=== PATIENT | female | born 1950 | race Caucasian/White ===

== ENCOUNTER 2020-05-13 08:13 | Outpatient (CLI) | payer OTHER, SELFPAY ==
--- NOTE | ~2020-05-13 | MM_ITS ---
EXAMINATION: MM screening [facility] BI w katarzyna HISTORY: Screening mammogram, family history of breast cancer in her sister. TECHNIQUE: Craniocaudal and mediolateral oblique 3-D tomosynthesis images were obtained and synthetic 2-D images were generated. CAD analysis was submitted and interpreted. COMPARISON: 03/30/2019, 03/25/2018, 02/17/2017 BREAST PARENCHYMAL COMPOSITION: The breasts are almost entirely fatty. FINDINGS: Stable focal asymmetry is again noted in the upper outer quadrant of the left breast. There is no evidence of suspicious mass, calcification, or architectural distortion to suggest malignancy in either breast. There has been no suspicious interval change. IMPRESSION: 1. No mammographic evidence of malignancy. 2. Recommend routine screening mammography in one year. BI-RADS Category 2: Benign finding(s). Reviewed, dictated and finalized at location A.
--- NOTE | ~2020-05-13 | DEXA_ITS ---
Bone Density Report Name: Freida House Age: 69 Sex: Female Ethnicity: White Date of : 1950 Indication: osteopenia; Referring Provider: Patt Nascimento Study: Bone densitometry was performed. Exam Date: May 13, 2020 Accession number: [id number] Bone Density: Region BMD T-score Z-score Classification AP Spine (L1-L4) 0.832 -2.0 0.1 Osteopenia Femoral Neck (Left) 0.619 -2.1 -0.3 Osteopenia Total Hip (Left) 0.759 -1.5 0.0 Osteopenia Total Hip Bilateral Avg 0.767 -1.5 0.1 Osteopenia Femoral Neck (Right) 0.598 -2.3 -0.5 Osteopenia Total Hip (Right) 0.775 -1.4 0.1 Osteopenia World Health Organization criteria for BMD impression classify patients as: Normal (T-score at or above -1.0), Osteopenia (T-score between -1.0 and -2.5), or Osteoporosis (T-score at or below -2.5). 10-year Fracture Risk(1): Major Osteoporotic Fracture 13% Hip Fracture 2.8% Reported Risk Factors: [place] (), Neck BMD=0.598, BMI=26.2 (1) FRAX(R) Version 3.08. Fracture probability calculated for an untreated patient. Fracture probability may be lower if the patient has received treatment. Previous Exams: Region Exam Age BMD T-score BMD Change BMD Change Date g/cm2 vs Baseline vs Previous AP Spine(L1-L4) 05/13/2020 69 0.832 -2.0 -0.019(-2.2%) 0.015(1.8%) 04/20/2018 67 0.817 -2.1 -0.034(-4.0%)* -0.034(-4.0%)* 07/23/2015 65 0.851 -1.8 Total Hip(Left) 05/13/2020 69 0.759 -1.5 -0.049(-6.1%)* -0.052(-6.4%)* 04/20/2018 67 0.811 -1.1 0.003(0.4%) 0.003(0.4%) 07/23/2015 65 0.808 -1.1 Total Hip(Right) 05/13/2020 69 0.775 -1.4 -0.037(-4.6%)* -0.045(-5.5%)* 04/20/2018 67 0.819 -1.0 0.008(1.0%) 0.008(1.0%) 07/23/2015 65 0.812 -1.1 *Denotes significance at 95% confidence level, LSC for AP Spine = 0.022 g/cm2, LSC for Total Hip = 0.027 g/cm2 Clinical Information Provided by Patient: Has used the following medications: Vitamin D, Calcium Patient maximum height was 62 Menopause Age: 50 Drinks caffeinated beverages Onset of menses at age 16 Number of children 1 Impression: The patient has low bone mass, based on the Right Femoral Neck T-score. The patient has an estimated ten-year risk of hip fracture of 2.8% and an estimated ten-year risk of major fracture of 13%, based on the WHO FRAX algorithm. The BMD for the Total Hip(Left) decreased, changing by -6.4% since the last DXA exam. The BMD for the Total Hip(Rig
== END 2020-05-13 08:14 | disposition home or self-care (01) ==
LOC: ANHIMG 08:24
PROVIDERS: PCP Nurse Practitioner Family; Visit Provider Nurse Practitioner Family
DX: Z12.31 Encounter for screening mammogram for malignant neoplasm of breast (principal); Z78.0 Asymptomatic menopausal state; M85.89 Other specified disorders of bone density and structure, multiple sites
CPT/HCPCS: 77063; 77067; 77080

== ENCOUNTER → 2021-05-03 01:17 | Outpatient (CLI) | payer OTHER, SELFPAY ==
[2021-05-03 19:37] LABS: SARS-CoV-2 RNA PCR Negative
== END ==
PROVIDERS: PCP Nurse Practitioner Family; Visit Provider Internal Medicine Gastroenterology
DX: Z01.812 Encounter for preprocedural laboratory examination (principal); Z20.822 Contact with and (suspected) exposure to COVID-19
CPT/HCPCS: C9803; U0003; U0005

== ENCOUNTER 2021-05-07 00:10 | Day surgery (SDC) | payer OTHER, SELFPAY ==
[2021-04-29 13:04] VITALS: BMI 25.8
[2021-05-07 07:41] VITALS: BP 142/89; PULSE 73; RESP 18; TEMP 35.9; O2SAT 100
[2021-05-07] MEDS: LACTATED RINGERS 1,000 ML 150 ML IV CONT (07:56)
--- NOTE | 2021-05-07 08:14 | WPDANESEPPF ---
Anes - Initial Pre Proc Eval Procedure: Operation Date: 05/07/21 08:30 Proposed Procedures p Screening Colonoscopy - Pineda Lemus MD Date/Time: 05/07/21 08:14 Surgeon: Pineda Lemus MD Pre Op Diagnosis: neoplasm screening Patient Data Age: 70 Gender: F Height: 5 ft 2 in Weight: 60.5 kg Last Vital Signs Temp 96.7 F L 05/07/21 07:41 Pulse 73 05/07/21 07:41 Resp 18 05/07/21 07:41 BP 142/89 H 05/07/21 07:41 Pulse Ox 100 05/07/21 07:41 Allergies Allergy/AdvReac Type Severity Reaction Status Date / Time Penicillins Allergy Unknown Unknown Verified 05/07/21 07:40 was told as a child Home Medications Medication Instructions Recorded Confirmed Type aspirin 81 mg tablet,delayed 81 mg PO DAILY 11/02/19 04/29/21 History release calcium carbonate 600 mg (1,500 1 tablet PO DAILY 11/02/19 04/29/21 History mg)-vitamin D3 200 unit tablet cholecalciferol (vitamin D3) 125 5,000 unit PO DAILY 11/02/19 04/29/21 History mcg (5,000 unit) tablet coenzyme Q10 200 mg capsule 200 mg PO DAILY 11/02/19 04/29/21 History benazepril 20 mg tablet See Rx Instructions .ROUTE 12/05/20 04/29/21 Rx .COMPLEX #90 tablet amlodipine 5 mg PO DAILY 04/29/21 04/29/21 History lovastatin 40 mg tablet 20 mg PO DAILY tablet 05/05/21 05/07/21 History Patient hx anesthesia problems: none Family hx anesthesia problems: none PMFSH Past Medical History Medical History (Updated 09/10/20 @ 09:35 by Patt Nascimento NP) Murillo palsy Essential (primary) hypertension Hyperlipidemia Normal colonoscopy (~10/2010) Osteopenia Surgical History Surgical History (Updated 05/03/20 @ 10:54 by Patt Nascimento NP) No history of previous surgery Social History Social History (Updated 05/03/20 @ 11:11 by Patt Nascimento NP) Smoking status: Former smoker Alcohol intake: current Living arrangements: alone Additional living arrangements comments: Patient designates her sonPerry as her qxdldjas-kh-hyui to make medical decision for her; HCPOA form is in chart Spiritual care concerns: No Anes - Eval Final PreProcedure Day of Procedure 05/07/21 08:14 Patient weight: normal Heart: regular rate and rhythm Lungs: clear to auscultation Airway: Mallampati scale class II Neurological: alert and oriented Last oral intake: >/= 8 hours ASA classification: III Emergent: no Anesthetic plan: proceed Anesthesia type and monitoring: general GIVS and standard monitoring Informed Consent: The patient's anesthetic plan and its attendant risks and benefits were discussed with the patient/family/POA. Questions were solicited and answers provided to the satisfaction of the patient/family/POA.
--- NOTE | 2021-05-07 08:21 | PM.HPGS ---
History of Present Illness History of Present Illness Consent: Risks, benefits, and alternatives have been discussed and questions answered. Patient agrees to proceed with procedure. Chief complaint: neoplasm screening Narrative: Freida House is a 70 year old female here for screening colonoscopy, last one 10 years ago. Review of Systems Constitutional: Constitutional: Denies headache(s) and Denies weakness Eyes: Eyes: Denies blurry vision ENT: Reports Normal hearing present, Denies headache(s) and Denies neck pain Cardiovascular: Cardiovascular: Denies chest pain and Denies dyspnea Respiratory: Respiratory: Denies dyspnea Gastrointestinal: Gastrointestinal: Reports no additional gastrointestinal complaints Genitourinary: Genitourinary: Denies dysuria Musculoskeletal: Musculoskeletal: Denies neck pain Integumentary/Breasts: Skin/Breast: Denies dry skin Neurologic: Reports Normal hearing present, Denies headache(s) and Denies weakness Psychiatric: Psychiatric: Denies anxiety Endocrine: Endocrine: Denies change in body appearance Hematologic/Lymphatic: Hematologic/Lymphatic: Denies easy bleeding Allergic/Immunologic: Allergic/Immunologic: Denies urticaria PMFSH Past Medical History Medical History (Updated 05/07/21 @ 08:38 by Pineda Lemus MD) Murillo palsy Colon cancer screening Essential (primary) hypertension Hyperlipidemia Normal colonoscopy (~10/2010) Osteopenia Surgical History Surgical History (Updated 05/03/20 @ 10:54 by Patt Nascimento NP) No history of previous surgery Social History Social History (Updated 05/03/20 @ 11:11 by Patt Nascimento NP) Smoking status: Former smoker Alcohol intake: current Living arrangements: alone Additional living arrangements comments: Patient designates her sonPerry as her [id number]-[id number] to make medical decision for her; HCPOA form is in chart Spiritual care concerns: No Meds Home Medications and Allergies Home Medications Medication Instructions Recorded Confirmed Type aspirin 81 mg tablet,delayed 81 mg PO DAILY 11/02/19 04/29/21 History release calcium carbonate 600 mg (1,500 1 tablet PO DAILY 11/02/19 04/29/21 History mg)-vitamin D3 200 unit tablet cholecalciferol (vitamin D3) 125 5,000 unit PO DAILY 11/02/19 04/29/21 History mcg (5,000 unit) tablet coenzyme Q10 200 mg capsule 200 mg PO DAILY 11/02/19 04/29/21 History benazepril 20 mg tablet See Rx Instructions .ROUTE 12/05/20 04/29/21 Rx .COMPLEX #90 tablet amlodipine 5 mg PO DAILY 04/29/21 04/29/21 History lovastatin 40 mg tablet 20 mg PO DAILY tablet 05/05/21 05/07/21 History Allergies Allergy/AdvReac Type Severity Reaction Status Date / Time Penicillins Allergy Unknown Unknown Verified 05/07/21 07:40 was told as a child Vital Signs Vital Signs - 24 hr 05/07/21 07:41 Temperature 96.7 F L Pulse Rate 73 Respiratory Rate 18 Blood Pressure 142/89 H Pulse Oximetry 100 Exam Const: General: comfortable and no acute distress HENMT: General nose exam: Normal nares present Eyes: General: appearance normal, both eyes and all related structures Neck: Neck: no JVD Resp: Auscultation: clear to auscultation bilaterally Cardio: Rate: regular rate Rhythm: regular rhythm GI: Inspection: non-distended GI Palp: Yes Soft to palpation Skin: General skin exam: normal color Neuro: General: gait normal Speech: normal speech Extrem: General: normal to inspection Psych: Mental Status: mental status grossly normal Assessment and Plan Assessment and plan (1) Colon cancer screening: Code(s): Z12.11 - Encounter for screening for malignant neoplasm of colon Status: Acute Assessment and Plan: colonoscopy
[2021-05-07 08:39] VITALS: BP 120/74; PULSE 67; RESP 18; O2SAT 100
[2021-05-07 08:49] VITALS: BP 118/71; PULSE 63; RESP 19; O2SAT 97
[2021-05-07 08:59] VITALS: BP 139/83; PULSE 65; RESP 20; O2SAT 98
== END 2021-05-07 09:10 | disposition home or self-care (01) ==
PROVIDERS: PCP Nurse Practitioner Family; Visit Provider Internal Medicine Gastroenterology
PROC: 0DJD8ZZ Inspection of Lower Intestinal Tract, Via Natural or Artificial Opening Endoscopic (ICD-10-PCS; CPT 45378; principal; 2021-05-07 08:30)
DX: Z12.11 Encounter for screening for malignant neoplasm of colon (principal); K57.30 Diverticulosis of large intestine without perforation or abscess without bleeding; K64.8 Other hemorrhoids; I10 Essential (primary) hypertension; E78.5 Hyperlipidemia, unspecified; Z79.82 Long term (current) use of aspirin
CPT/HCPCS: G0121; C9803; J2704; J7120; U0003; U0005

== ENCOUNTER 2021-06-18 08:35 | Outpatient (CLI) | payer OTHER, SELFPAY ==
--- NOTE | ~2021-06-18 | MM_ITS ---
EXAMINATION: MM screening [facility] BI w katarzyna HISTORY: Screening TECHNIQUE: Craniocaudal and mediolateral oblique 3-D tomosynthesis images were obtained and synthetic 2-D images were generated. CAD analysis was submitted and interpreted. COMPARISON: Comparison to multiple prior studies sequentially, with oldest reviewed study dated 07/23. BREAST PARENCHYMAL COMPOSITION: There are scattered areas of fibroglandular density. FINDINGS: There is no evidence of suspicious mass, calcification, or architectural distortion to sugg est malignancy in either breast. There has been no suspicious interval change. IMPRESSION: 1. No mammographic evidence of malignancy. 2. Recommend routine screening mammography in one year. BI-RADS Category 1: Negative Reviewed, dictated and finalized at location A.
== END 2021-06-18 08:36 | disposition home or self-care (01) ==
LOC: ANHIMG 08:39
PROVIDERS: PCP Nurse Practitioner Family; Visit Provider Family Medicine
DX: Z12.31 Encounter for screening mammogram for malignant neoplasm of breast (principal)
CPT/HCPCS: 77063; 77067

== ENCOUNTER → 2022-04-07 08:08 | Outpatient (CLI) | payer OTHER, SELFPAY ==
--- NOTE | ~2022-04-07 | US_ITS ---
EXAMINATION: US soft tissue abdomen INDICATION: Right lower quadrant pain TECHNIQUE: Targeted ultrasound is performed in the right lower quadrant in the area of clinical inter est. COMPARISON: None available FINDINGS: There appears to be a peristalsing loop of nonobstructed bowel in at least partial abdomina l wall defect of the right lower quadrant in the area of clinical concern. No suspicious mass is iden tified. IMPRESSION: 1. Ultrasound findings suggestive of abdominal wall hernia. Consider further evaluation with CT. Reviewed, dictated and finalized at location A. IMPRESSION: 1. Ultrasound findings suggestive of abdominal wall hernia. Consider further ev aluation with CT.
== END ==
PROVIDERS: PCP Family Medicine; Visit Provider Nurse Practitioner Family
DX: R10.31 Right lower quadrant pain (principal)
CPT/HCPCS: 76705

== ENCOUNTER 2022-06-29 07:39 | Outpatient (CLI) | payer OTHER, SELFPAY ==
--- NOTE | ~2022-06-29 | DEXA_ITS ---
Bone Density Report Name: SABRINA HERMAN Age: 72 Sex: Female Ethnicity: White Date of : 1950 Indication: osteopenia; postmenopausal Referring Provider: VINICIO MONTESINOS Study: Bone densitometry was performed. Exam Date: June 29, 2022 Accession number: [id number] Bone Density: Region BMD T-score Z-score Classification AP Spine(L1-L4) 0.799 -2.3 0.0 Osteopenia Femoral Neck (Left) 0.636 -1.9 0.0 Osteopenia Total Hip (Left) 0.745 -1.6 0.0 Osteopenia Femoral Neck (Right) 0.626 -2.0 -0.1 Osteopenia Total Hip (Right) 0.751 -1.6 0.0 Osteopenia Total Hip Mean 0.748 -1.6 0.0 Osteopenia World Health Organization criteria for BMD impression classify patients as: Normal (T-score at or above -1.0), Osteopenia (T-score between -1.0 and -2.5), or Osteoporosis (T-score at or below -2.5). 10-year Fracture Risk(1): Major Osteoporotic Fracture 12% Hip Fracture 2.5% Reported Risk Factors: [place] (), Neck BMD=0.636, BMI=24.9 (1) FRAX(R) Version 3.08. Fracture probability calculated for an untreated patient. Fracture probability may be lower if the patient has received treatment. Previous Exams: Region Exam Age BMD T-score BMD Change BMD Change Date g/cm2 vs Baseline vs Previous AP Spine (L1-L4) 06/29/2022 72 0.799 -2.3 -0.052 (-6.1%) -0.033 (-3.9%) 05/13/2020 69 0.832 -2.0 -0.019 (-2.2%) 0.015 (1.8%) 04/20/2018 67 0.817 -2.1 -0.034 (-4.0%) -0.034 (-4.0%) 07/23/2015 65 0.851 -1.8 Total Hip(Left) 06/29/2022 72 0.745 -1.6 -0.063 (-7.8%) -0.014 (-1.8%) 05/13/2020 69 0.759 -1.5 -0.049 (-6.1%) -0.052 (-6.4%) 04/20/2018 67 0.811 -1.1 0.003 (0.4%) 0.003 (0.4%) 07/23/2015 65 0.808 -1.1 Total Hip(Right) 06/29/2022 72 0.751 -1.6 -0.061 (-7.5%) -0.024 (-3.0%) 05/13/2020 69 0.775 -1.4 -0.037 (-4.6%) -0.045 (-5.5%) 04/20/2018 67 0.819 -1.0 0.008 (1.0%) 0.008 (1.0%) 07/23/2015 65 0.812 -1.1 *Denotes significance at 95% confidence level, LSC for AP Spine = 0.022 g/cm2, LSC for Total Hip = 0.027 g/cm2 Clinical Information Provided by Patient: Has used the following medications: Vitamin D, Calcium Patient maximum height was 62 Menopause Age: 50 Drinks caffeinated beverages Onset of menses at age 16 Number of children 1 Impression: The patient has low bone mass, based on the Total Spine T-score. The patient has an estimated ten-year risk of hip fr
--- NOTE | ~2022-06-29 | MM_ITS ---
EXAMINATION: MM screening [facility] BI w katarzyna HISTORY: Screening TECHNIQUE: Craniocaudal and mediolateral oblique 3-D tomosynthesis images were obtained and synthetic 2-D images were generated. CAD analysis was submitted and interpreted. COMPARISON: Comparison to multiple prior studies sequentially, with oldest reviewed study dated 02/17. BREAST PARENCHYMAL COMPOSITION: There are scattered areas of fibroglandular density. FINDINGS: There is no evidence of suspicious mass, calcification, or architectural distortion to sugg est malignancy in either breast. There has been no suspicious interval change. IMPRESSION: 1. No mammographic evidence of malignancy. 2. Recommend routine screening mammography in one year. BI-RADS Category 1: Negative Reviewed, dictated and finalized at location A.
== END 2022-06-29 07:40 | disposition home or self-care (01) ==
PROVIDERS: PCP Family Medicine; Visit Provider Nurse Practitioner Family
DX: Z12.31 Encounter for screening mammogram for malignant neoplasm of breast (principal); Z78.0 Asymptomatic menopausal state; M85.89 Other specified disorders of bone density and structure, multiple sites
CPT/HCPCS: 77063; 77067; 77080

== ENCOUNTER 2022-08-17 07:52 | Outpatient (CLI) | payer OTHER, SELFPAY ==
--- NOTE | 2022-08-17 08:00 | ECG_ITS ---
Measurements Intervals [place] Rate: 61 P: -8 UT: 142 QRS: -1 QRSD: 105 T: 42 QT: 399 QTc: 403 Interpretive Statements SINUS RHYTHM INCOMPLETE RIGHT BUNDLE BRANCH BLOCK BASELINE ARTIFACT- I, II, III, AVR, AVL, AVF BORDERLINE ECG NO PREVIOUS ECG AVAILABLE FOR COMPARISON Electronically Signed On 08-17-2022 8:35:36 CDT by Johny Madden D.O.
== END 2022-08-17 07:53 | disposition home or self-care (01) ==
LOC: ANHSURGERY 07:56
PROVIDERS: PCP Family Medicine; Visit Provider Surgery
DX: Z01.818 Encounter for other preprocedural examination (principal); I10 Essential (primary) hypertension; E78.5 Hyperlipidemia, unspecified; K40.90 Unilateral inguinal hernia, without obstruction or gangrene, not specified as recurrent
CPT/HCPCS: 36415; 86850; 86900; 86901; 93005

== ENCOUNTER 2022-08-20 00:11 | Day surgery (SDC) | payer OTHER, SELFPAY ==
[2022-08-13 15:26] VITALS: BMI 24.7
--- NOTE | 2022-08-13 15:34 | PC.NURSE ---
Report to the Outpatient Waiting Room, entrance under the green pavilion located off [facility], at time _1000_ on date _[id number]_. OR Time: _1200_. Time changes happen often and if your time is changed the preop area will call you the afternoon before. - You and your visitor will be asked to self-screen and do not enter if you have any COVID symptoms. - Only one visitor and NO children visitors are allowed at this time. - The patient visitor is requested to leave or wait in car when not with patient due to restrictions. - A mask is required within the hospital. Patients may have clear liquids (water, carbonated beverages, clear teas, apple juice) until 3 hours prior to surgery with a maximum of 20 ounces. - No food from midnight until time of surgery Take the following medications with a SIP of water the morning of surgery: Amlodipine Medications to discontinue per physician ___All vitamins and supplements Date to take last tujl___[id number] Please no make-up, nail sami, hairspray, perfume, deodorant, or body powder the day of surgery. No jewelry (including any body piercings) or valuables the day of surgery, leave them at home. Please take a shower or bath the morning of surgery with Hebiclense, an antibacterial soap. Wear comfortable, loose fitting clothing. - Jewelry must be removed prior to entering the operating room. Rings and piercings that are not removed may be cut off. - The hospital will not accept responsibility for valuables. - Please leave all valuables, including medications, at home the day of surgery. If you are going home after surgery, a licensed service parts driver must drive you home. - NO public transportation without another adult. - We recommend that an adult stay with you for 24 hours following discharge. - We also recommend that you do not drive, make important decision, drink alcoholic beverages, or take any drugs that were not prescribed by your health care provider for at least 24 hours after your discharge time. Follow any additional instructions given to you from your surgeon. If you or anyone in your household have experienced Covid symptoms in the past week, please notify your surgeon or the nurse liaison at the phone number below for possible testing. Telephone instructions given to _Patient___and asked if any additional questions and then verbalized understanding. Patient advised to call surgeon office or pre surgery nurse liaison [phone] if any additional questions.
[2022-08-20] VITALS (8 sets, daily range): BP systolic 116–135; BP diastolic 56–73; PULSE 68–95; RESP 14–17; TEMP 36.6–37.2; O2SAT 97–100
[2022-08-20] MEDS: ACETAMINOPHEN 500 MG TABLET 1000 MG PO (11:00)
[2022-08-20] MEDS: KETOROLAC 15 MG/ML VIAL (*BKC) IV PUSH (11:00)
[2022-08-20] MEDS: LACTATED RINGERS 1,000 ML 30 ML IV CONT ×2 (11:00→13:37)
--- NOTE | 2022-08-20 11:06 | WPDANESEPPF ---
Anes - Initial Pre Proc Eval Procedure: Operation Date: 08/20/22 12:00 Proposed Procedures p Robotic Assisted Right Inguinal Hernia Repair with Mesh - Nataliia To MD Date/Time: 08/20/22 11:06 Surgeon: Nataliia To MD Pre Op Diagnosis: Right Ing Hernia Patient Data Age: 72 Gender: F Height: 1.57 m Weight: 61.4 kg Allergies Allergy/AdvReac Type Severity Reaction Status Date / Time Penicillins Allergy Unknown Unknown Verified 08/13/22 15:23 was told as a child poison shanell extract Allergy Unknown Unknown Verified 08/13/22 15:23 Home Medications Medication Instructions Recorded Confirmed Type aspirin 81 mg tablet,delayed 81 mg PO DAILY 11/02/19 08/13/22 History release (Adult Low Dose Aspirin) calcium carbonate 600 mg-vitamin 1 tablet PO DAILY 11/02/19 08/13/22 History D3 5 mcg (200 unit) tablet (Calcium 600 + D(3)) cholecalciferol (vitamin D3) 125 5,000 unit PO DAILY 11/02/19 08/13/22 History mcg (5,000 unit) tablet coenzyme Q10 200 mg capsule (Co 200 mg PO DAILY 11/02/19 08/13/22 History Q-10) lovastatin 40 mg tablet 40 mg PO DAILY #90 tabs 03/31/22 08/13/22 Rx lysine 500 mg tablet (L-Lysine) 1,000 mg PO DAILY 04/15/22 08/13/22 History omega 2-hjd-ogn-fish oil 60 mg-90 1 cap PO DAILY 04/15/22 08/13/22 History mg-500 mg capsule (Fish Oil) vitamin B complex (B 1 tablet PO DAILY 04/15/22 08/13/22 History Complex-Vitamin B12 tablet) amlodipine 5 mg tablet 5 mg PO DAILY #90 tabs 06/29/22 08/13/22 Rx benazepril 20 mg tablet 20 mg PO DAILY #90 tabs 06/29/22 08/13/22 Rx turmeric 400 mg capsule 400 mg PO DAILY 08/13/22 08/13/22 History Patient hx anesthesia problems: none Family hx anesthesia problems: none Results Review: All pre-operative results and documents have been reviewed as part of the pre-operative evaluation. [facility] Past Medical History Medical History Murillo palsy Essential (primary) hypertension Hyperlipidemia Normal colonoscopy (~04/2021) Osteopenia Surgical History Surgical History (Updated 08/20/22 @ 11:07 by Catalino Joseph MD) H/O colonoscopy History of tubal ligation Family History Family History Sibling Breast cancer Non-Hodgkins lymphoma Emphysema lung Social History Social History (Updated 08/20/22 @ 11:07 by Catalino Joseph MD) Smoking status: Former smoker Second hand tobacco smoke exposure: No Alcohol intake: current Substance use type: marijuana Other substance usage details: daily Living arrangements: alone Additional living arrangements comments: Patient designates her sonPerry as her [id number]-it-mydn to make medical decision for her; HCPOA form is in chart Spiritual care concerns: No Anes - Eval Final PreProcedure Day of Procedure 08/20/22 11:06 Patient weight: normal Heart: regular rate and rhythm Lungs: clear to auscultation Airway: Mallampati scale class II Neurological: alert and oriented Last oral intake: >/= 8 hours ASA classification: III Emergent: no Anesthetic plan: proceed Anesthesia type and monitoring: general ETT and standard monitoring Results Review: All pre-operative results and documents have been reviewed as part of the pre-operative evaluation. Informed Consent: The patient's anesthetic plan and its attendant risks and benefits were discussed with the patient/family/POA. Questions were solicited and answers provided to the satisfaction of the patient/family/POA.
--- NOTE | 2022-08-20 12:10 | PM.IMHP ---
H&P: HPI History of Present Illness Date/Time: 08/20/22 12:10 Chief Complaint: right inguinal hernia Narrative: MS House is a 71 year old female that presents tot he office a the request of Patt Nascimento NP for an evaluation of a hernia. Patient reports that she has a bulge in the right lower abdomen. She reports that it causes slight discomfort and she first noticed it about 6 months after doing some yard work. She reports that she notices the bulge and slight discomfort with activity on occasion. She reports that it is not getting larger with time that she is aware of. She reports that most days she doesn't even notice the bulge. Patient had an abdomen soft tissue ultrasound on 04/07/22 that showed abdominal wall hernia. Review of Systems Review of Systems: All systems reviewed & are unremarkable except as noted in HPI and below PMFSH Past Medical History Medical History Murillo palsy Essential (primary) hypertension Hyperlipidemia Normal colonoscopy (~04/2021) Osteopenia Surgical History Surgical History H/O colonoscopy History of tubal ligation Family History Family History Sibling Breast cancer Non-Hodgkins lymphoma Emphysema lung Social History Social History Smoking status: Former smoker Second hand tobacco smoke exposure: No Alcohol intake: current Substance use type: marijuana Other substance usage details: daily Living arrangements: alone Additional living arrangements comments: Patient designates her sonPerry as her [id number] to make medical decision for her; HCPOA form is in chart Spiritual care concerns: No Meds Home Medications and Allergies Home Medications Medication Instructions Recorded Confirmed Type aspirin 81 mg tablet,delayed 81 mg PO DAILY 11/02/19 08/13/22 History release (Adult Low Dose Aspirin) calcium carbonate 600 mg-vitamin 1 tablet PO DAILY 11/02/19 08/13/22 History D3 5 mcg (200 unit) tablet (Calcium 600 + D(3)) cholecalciferol (vitamin D3) 125 5,000 unit PO DAILY 11/02/19 08/13/22 History mcg (5,000 unit) tablet coenzyme Q10 200 mg capsule (Co 200 mg PO DAILY 11/02/19 08/13/22 History Q-10) lovastatin 40 mg tablet 40 mg PO DAILY #90 tabs 03/31/22 08/13/22 Rx lysine 500 mg tablet (L-Lysine) 1,000 mg PO DAILY 04/15/22 08/13/22 History omega 5-fbs-waz-fish oil 60 mg-90 1 cap PO DAILY 04/15/22 08/13/22 History mg-500 mg capsule (Fish Oil) vitamin B complex (B 1 tablet PO DAILY 04/15/22 08/13/22 History Complex-Vitamin B12 tablet) amlodipine 5 mg tablet 5 mg PO DAILY #90 tabs 06/29/22 08/13/22 Rx benazepril 20 mg tablet 20 mg PO DAILY #90 tabs 06/29/22 08/13/22 Rx turmeric 400 mg capsule 400 mg PO DAILY 08/13/22 08/13/22 History Allergies Allergy/AdvReac Type Severity Reaction Status Date / Time Penicillins Allergy Unknown Unknown Verified 08/13/22 15:23 was told as a child poison shanell extract Allergy Unknown Unknown Verified 08/13/22 15:23 Exam Const: General: cooperative, comfortable and no acute distress Resp: Auscultation: clear to auscultation bilaterally Cardio: Rate: regular rate Rhythm: regular rhythm GI: Inspection: normal to inspection and non-distended GI Palp: Yes abdominal tenderness, Yes Soft to palpation, No Tenderness to palpation present (GI), No Guarding due to palpation present (GI), No Rigid due to palpation and Yes Hernia present Other: R inguinal hernia - reducible, mildly TTP Assessment and Plan Assessment and plan (1) Right inguinal hernia: Code(s): K40.90 - Unilateral inguinal hernia, without obstruction or gangrene, not specified as recurrent Status: Acute Assessment and Plan: will setup for robotic assisted repair c mesh
--- NOTE | 2022-08-20 12:12 | WPDHPUPDATE1 ---
History and Physical Update Update Date/Time: 08/20/22 12:12 History and Physical has been reviewed, including an updated exam of the patient. There are NO changes in the patient's condition. Risks, benefits, and alternatives have been discussed and questions answered. Patient agrees to proceed with procedure.
[2022-08-20] MEDS: ceFAZolin 2 GM/D5W 50 ML 2 GM/50 ML BAG IVPB (12:20)
[2022-08-20] MEDS: BUPIVACAINE/EPINEPHRINE 0.25% 50 ML VIAL 30 ML INFILTRATE (12:57)
--- NOTE | 2022-08-20 13:41 | P.OP_ITS ---
Procedure Note - Detailed Date of Procedure 08/20/22 Pre-op Diagnosis Right Inguinal Hernia Post-op Diagnosis Same Procedure Performed robotic assisted right inguinal hernia repair with mesh Surgeon Nataliia To MD Anesthesia General Indications 72-year-old female with right inguinal hernia and noted small bowel within hernia Findings indirect right inguinal hernia Description of Procedure Patient was brought into the operating room and placed in the supine position. After adequate induction of general anesthesia, the patient was prepped and draped in normal sterile fashion. A time-out was then done to verify the patient's identity, as well as the procedure being performed. Began by making a 8 mm incision in the supraumbilical region, a Veress needle was then placed into the peritoneal cavity. CO2 gas was then insufflated and after adequate pneumoperitoneum was achieved, the Veress needle was removed. I then placed an 8 mm trocar through this incision. I then placed the endoscope through this trocar site and under direct visualization placed 2 further 8 mm ports in the right and left mid abdomen. The [employer] robot was then docked to the 3 trocar sites. I then scrubbed out and went to the robotic console. Upon examining the pelvis, it was noted that the patient had a moderate right inguinal hernia. The left side was examined and no hernia defect was noted. I began by making a preperitoneal flap approximately 6 cm superior to the defect. This flap was carried medially past the umbilical ligaments in laterally to the transversalis. It then began dissection of my medial compartment taking this down to the pubic tubercle. I then began the lateral dissection taking this down to the transversalis fascia. Once these compartments were achieved, I began dissection around the round ligament. A moderate indirect hernia was noted at this point. Using careful dissection, was able to reduce indirect hernia sac off the round ligament. I then dissected and transected the round ligament. Once this was adequately done, I went ahead and placed a large piece of 3D Max mesh into the abdominal cavity. The mesh was carefully positioned, centering the center of the mesh over the indirect defect. Once this was done, was very satisfied with our repair. Using 3-0 Vicryl sutures, I tacked the mesh medially to Salinas's ligament. Two lateral sutures were placed from the mesh to the transversalis fascia. I then closed the peritoneal flap with a running 2.0 V Lock suture. The abdomen was then desufflated, and all ports were removed. All incisions were then closed with the 4.0 monocryl suture. Dermabond was placed on each wound. The patient tolerated the procedure well, was extubated in the operating room postoperatively, and will now be transferred to the recovery room in stable condition. Implants large 3DMax mesh Estimated Blood Loss 10 Drains No Packing No Pathology None sent Complications No immediate complications Condition Stable Disposition PACU [facility] Billing Surgery - Charge Forward: Surgery Billing
== END 2022-08-20 15:34 | disposition home or self-care (01) ==
PROVIDERS: PCP Family Medicine; Visit Provider Surgery
PROC: 8E0Y4CZ Robotic Assisted Procedure of Lower Extremity, Percutaneous Endoscopic Approach (ICD-10-PCS; CPT 49650; principal; 2022-08-20 12:00)
DX: K40.30 Unilateral inguinal hernia, with obstruction, without gangrene, not specified as recurrent (principal); I10 Essential (primary) hypertension; E78.5 Hyperlipidemia, unspecified; Z87.891 Personal history of nicotine dependence; F12.90 Cannabis use, unspecified, uncomplicated; Z79.82 Long term (current) use of aspirin
CPT/HCPCS: 49650; S2900; 36415; 86850; 86900; 86901; 93005; A9270; C1781; J0690; J1100; J1885; J2405; J2704; J3010; J7120

== ENCOUNTER 2023-04-06 10:12 | Outpatient (CLI) | payer OTHER, SELFPAY ==
[2023-04-06 14:02] LABS: Basophils Percent Auto 0.2 % (0.2-1.2); Eosinophils Absolute Auto 0.1 K/mm3 (0-0.3); Eosinophils Percent Auto 0.7 % (0-4.4); Hemoglobin 13.9 g/dL (12.0-15.0); Immature Granulocyte Absolute 0.03 K/mm3 (0.00-0.031); Immature Granulocyte Percent A 0.3 % (0-0.5); Lymphocytes Absolute Auto 1.95 K/mm3 (0.9-3.2); Lymphocytes Percent Auto 16.7 % (18.3-44.2); Mean Corpuscular HGB Conc 31.6 g/dl (32-36); Mean Corpuscular Hemoglobin 29.6 pg (26-34); Mean Corpuscular Volume 93.8 fl (80-100); Mean Platelet Volume 10.2 fl (7.4-10.4); Monocytes Absolute Auto 0.7 K/mm3 (0.1-0.6); Monocytes Percent Auto 5.8 % (2.6-8.5); Neutrophils Absolute Auto 8.9 K/mm3 (1.3-6.7); Neutrophils Percent Auto 76.3 % (45.5-73.1); Platelet Count Result 315 k/mm3 (150-375); Red Blood Count 4.69 M/mm3 (4.2-5.4); Red Cell Distribution Width 13.9 % (11.5-14.5); White Blood Count 11.7 K/mm3 (4.5-10.0)
[2023-04-06 14:07] LABS: Alanine Aminotransferase 26 U/L (6-35); Albumin Level 4.4 g/dL (3.5-5.1); Alkaline Phosphatase 103 U/L (38-126); Anion Gap 5 mmol/L (8-16); Aspartate Amino Transferase 61 U/L (14-36); Bilirubin,Total 0.8 mg/dL (0.2-1.3); Blood Urea Nitrogen 17 mg/dL (7-17); Calcium 9.3 mg/dL (8.4-10.2); Carbon Dioxide 30 mmol/L (22-30); Chloride 106 mmol/L (98-107); Cholesterol 239 mg/dL (0-200); Estimated Glomerular Filt Rate > 60; Glucose 98 mg/dL (65-110); HDL Direct 67 mg/dL; Potassium 4.3 mmol/L (3.4-5.0); Sodium 141 mmol/L (137-145); Triglycerides 133 mg/dL (<150)
[2023-04-06 14:18] LABS: LDL Cholesterol Direct 110 mg/dL
== END 2023-04-06 10:13 | disposition home or self-care (01) ==
LOC: ANHGOSHLAB 10:13
PROVIDERS: PCP Family Medicine; Visit Provider Family Medicine
DX: E53.8 Deficiency of other specified B group vitamins (principal); E78.5 Hyperlipidemia, unspecified; E55.9 Vitamin D deficiency, unspecified; I10 Essential (primary) hypertension
CPT/HCPCS: 36415; 80053; 80061; 82306; 82607; 84443; 85025

== ENCOUNTER 2023-07-15 09:49 | Outpatient (CLI) | payer OTHER, SELFPAY ==
[2023-07-15 11:35] LABS: Basophils Percent Auto 0.3 % (0.2-1.2); Eosinophils Absolute Auto 0.3 K/mm3 (0-0.3); Eosinophils Percent Auto 2.7 % (0-4.4); Hematocrit 42.2 % (37.0-47.0); Hemoglobin 13.4 g/dL (12.0-15.0); Immature Granulocyte Absolute 0.03 K/mm3 (0.00-0.031); Immature Granulocyte Percent A 0.3 % (0-0.5); Lymphocytes Absolute Auto 3.63 K/mm3 (0.9-3.2); Lymphocytes Percent Auto 35.9 % (18.3-44.2); Mean Corpuscular HGB Conc 31.8 g/dl (32-36); Mean Corpuscular Hemoglobin 29.8 pg (26-34); Mean Corpuscular Volume 93.8 fl (80-100); Mean Platelet Volume 10.2 fl (7.4-10.4); Monocytes Absolute Auto 0.7 K/mm3 (0.1-0.6); Monocytes Percent Auto 6.9 % (2.6-8.5); Neutrophils Absolute Auto 5.5 K/mm3 (1.3-6.7); Neutrophils Percent Auto 53.9 % (45.5-73.1); Platelet Count Result 322 k/mm3 (150-375); Red Cell Distribution Width 13.8 % (11.5-14.5); White Blood Count 10.1 K/mm3 (4.5-10.0)
[2023-07-15 11:36] LABS: Alanine Aminotransferase 20 U/L (6-35); Alkaline Phosphatase 70 U/L (38-126); Anion Gap 6 mmol/L (8-16); Aspartate Amino Transferase 44 U/L (14-36); Bilirubin,Total 0.6 mg/dL (0.2-1.3); Blood Urea Nitrogen 35 mg/dL (7-17); Calcium 9.5 mg/dL (8.4-10.2); Carbon Dioxide 27 mmol/L (22-30); Chloride 107 mmol/L (98-107); Cholesterol 299 mg/dL (0-200); Estimated Glomerular Filt Rate 44; Glucose 98 mg/dL (65-110); HDL Direct 55 mg/dL; Potassium 4.6 mmol/L (3.4-5.0); Sodium 140 mmol/L (137-145); Triglycerides 165 mg/dL (<150)
[2023-07-15 11:48] LABS: LDL Cholesterol Direct 173 mg/dL
== END 2023-07-15 09:50 | disposition home or self-care (01) ==
PROVIDERS: Nurse Practitioner Family; PCP Family Medicine; Visit Provider Family Medicine
DX: D72.829 Elevated white blood cell count, unspecified (principal); R74.01 Elevation of levels of liver transaminase levels; I10 Essential (primary) hypertension
CPT/HCPCS: 36415; 80053; 80061; 85025

== ENCOUNTER 2023-10-29 07:27 | Outpatient (CLI) | payer OTHER, SELFPAY ==
--- NOTE | ~2023-10-29 | MM_ITS ---
EXAMINATION: MM screening [facility] BI w katarzyna HISTORY: Screening mammogram TECHNIQUE: Craniocaudal and mediolateral oblique 3-D tomosynthesis images were obtained and synthetic 2-D images were generated. CAD analysis was submitted and interpreted. COMPARISON: 06/29/2022, 06/18/2021, 05/13/2020 bilateral screening mammogram examinations BREAST PARENCHYMAL COMPOSITION: There are scattered areas of fibroglandular density. FINDINGS: There is no evidence of suspicious mass, calcification, or architectural distortion to sugg est malignancy in either breast. There has been no suspicious interval change. IMPRESSION: 1. No mammographic evidence of malignancy. 2. Recommend routine screening mammography in one year. BI-RADS Category 1: Negative Reviewed, dictated and finalized at location A. 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
== END 2023-10-29 07:28 | disposition home or self-care (01) ==
PROVIDERS: PCP Family Medicine; Visit Provider Family Medicine
DX: Z12.31 Encounter for screening mammogram for malignant neoplasm of breast (principal)
CPT/HCPCS: 77063; 77067

== ENCOUNTER 2024-07-26 08:52 | Outpatient (CLI) | payer OTHER, SELFPAY ==
[2024-07-26 15:43] LABS: Hematocrit 43.1 % (37.0-47.0); Hemoglobin 13.8 g/dL (12.0-15.0); Mean Corpuscular Volume 93.7 fl (80-100); Mean Platelet Volume 10.2 fl (7.4-10.4); Platelet Count Result 287 k/mm3 (150-375); Red Cell Distribution Width 13.8 % (11.5-14.5); White Blood Count 10.3 K/mm3 (4.5-10.0)
[2024-07-26 18:10] LABS: Alanine Aminotransferase 15 U/L (6-35); Albumin Level 4.2 g/dL (3.5-5.1); Alkaline Phosphatase 81 U/L (38-126); Anion Gap 9 mmol/L (4-12); Aspartate Amino Transferase 51 U/L (14-36); Bilirubin,Total 0.5 mg/dL (0.2-1.3); Blood Urea Nitrogen 24 mg/dL (7-17); Calcium 9.4 mg/dL (8.4-10.2); Carbon Dioxide 29 mmol/L (22-30); Chloride 102 mmol/L (98-107); Cholesterol 318 mg/dL (0-200); Estimated Glomerular Filt Rate > 60; Glucose 95 mg/dL (65-110); HDL Direct 71 mg/dL; Potassium 3.9 mmol/L (3.4-5.0); Sodium 140 mmol/L (137-145); Triglycerides 142 mg/dL (<150)
[2024-07-26 18:20] LABS: LDL Cholesterol Direct 199 mg/dL
[2024-07-26 18:40] LABS: Vitamin D 25 Hydroxy 29.2 ng/mL
[2024-07-26 19:04] LABS: Hemoglobin A1C 5.9 % (<5.7)
== END 2024-07-26 08:53 | disposition home or self-care (01) ==
PROVIDERS: PCP Family Medicine; Visit Provider Nurse Practitioner Family
DX: I12.9 Hypertensive chronic kidney disease with stage 1 through stage 4 chronic kidney disease, or unspecified chronic kidney disease (principal); N18.30 Chronic kidney disease, stage 3 unspecified; E78.2 Mixed hyperlipidemia; E55.9 Vitamin D deficiency, unspecified; R73.01 Impaired fasting glucose
CPT/HCPCS: 36415; 80053; 80061; 82306; 83036; 84443; 85027

== ENCOUNTER 2025-01-11 07:28 | Outpatient (CLI) | payer OTHER, SELFPAY ==
--- NOTE | ~2025-01-11 | DEXA_ITS ---
Bone Density Report Name: SABRINA HERMAN Age: 74 Sex: Female Ethnicity: White Date of : 1950 Indication: postmenopausal; screening for osteoporosis; Referring Provider: VINICIO MONTESINOS Study: Bone densitometry was performed. Exam Date: January 11, 2025 Accession number: [id number] Bone Density: Region BMD T-score Z-score Classification AP Spine(L1-L4) 0.819 -2.1 0.3 Osteopenia Femoral Neck (Left) 0.593 -2.3 -0.3 Osteopenia Total Hip (Left) 0.733 -1.7 0.0 Osteopenia Femoral Neck (Right) 0.576 -2.5 -0.4 Osteoporosis Total Hip (Right) 0.733 -1.7 0.0 Osteopenia Total Hip Mean 0.733 -1.7 0.0 Osteopenia World Health Organization criteria for BMD impression classify patients as: Normal (T-score at or above -1.0), Osteopenia (T-score between -1.0 and -2.5), or Osteoporosis (T-score at or below -2.5). 10-year Fracture Risk: FRAX not reported because: Some T-score for Spine Total or Hip Total or Femoral Neck at or below -2.5 Clinical Information Provided by Patient: Has used the following medications: Vitamin D, Calcium Patient maximum height was 62 Menopause Age: 50 Drinks caffeinated beverages Onset of menses at age 15 Number of children 1 Impression: The patient has osteoporosis, based on the Right Femoral Neck T-score. Discussion: INCREASED RISK OF FRACTURE. BONE DENSITY IS UNDESIRABLY LOW AT ONE OR MORE SKELETAL SITES, CONSISTENT WITH POSTMENOPAUSAL OSTEOPOROSIS. This patient's lowest T-score meets the World Health Organization's (WHO) criteria for osteoporosis at one or more sites (T-score -2.5 or below). In untreated patients, the risk of osteoporotic fracture increases approximately two-fold for each 1.0 SD decrease in T-score. Low bone density is not the only risk factor for fracture; also consider factors such as patient's age, frailty or poor health, risk of falling, risk of injury, previous osteoporotic fracture, family history of osteoporosis, cigarette smoking, low body weight, etc. Not everyone with low bone mineral density has osteoporosis; osteomalacia and other metabolic bone disorders should also be considered. Patients who have osteoporosis should be evaluated for specific diseases and conditions (secondary causes) that may cause or contribute to bone loss. The [place] [employer]ocrinologists (AACE) and National Osteoporosis Foundation (NOF) recommend pharmacologic intervention for all postmenopausal women whose T-score is in this range. The patient should follow a healthful lifestyle (good nutrition with adequate calcium and vitamin D, and appropriate weight-bearing exercise). Follow-Up: Consider a repeat BMD and Vertebral Fracture Assessment (VFA) exam in 2 years or sooner if medically necessary, to reassess this patient's status. Reported by: JIGNA on 01/11/2025 8:19:00 AM. Reviewed, dictated and finalized at location ADiann PRECIADO
--- NOTE | ~2025-01-11 | MM_ITS ---
EXAMINATION: MM screening [facility] BI w katarzyna HISTORY: Screening TECHNIQUE: Craniocaudal and mediolateral oblique 3-D tomosynthesis images were obtained and synthetic 2-D images were generated. CAD analysis was submitted and interpreted. COMPARISON: Comparison to multiple prior studies sequentially, with oldest reviewed study dated 03/25. BREAST PARENCHYMAL COMPOSITION: Not dense: There are scattered areas of fibroglandular density. FINDINGS: There is no evidence of suspicious mass, calcification, or architectural distortion to sugg est malignancy in either breast. There has been no suspicious interval change. IMPRESSION: 1. No mammographic evidence of malignancy. 2. Recommend routine screening mammography in one year. BI-RADS Category 1: Negative Reviewed, dictated and finalized at location B. 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
== END 2025-01-11 07:29 | disposition home or self-care (01) ==
PROVIDERS: PCP Family Medicine; Visit Provider Nurse Practitioner Family
DX: Z12.31 Encounter for screening mammogram for malignant neoplasm of breast (principal); M81.0 Age-related osteoporosis without current pathological fracture; M85.89 Other specified disorders of bone density and structure, multiple sites; Z78.0 Asymptomatic menopausal state
CPT/HCPCS: 77063; 77067; 77080

== ENCOUNTER 2025-08-15 08:59 | Outpatient (CLI) | payer OTHER, SELFPAY ==
[2025-08-15 14:06] LABS: Hematocrit 45.7 % (37.0-47.0); Hemoglobin 14.5 g/dL (12.0-15.0); Immature Granulocyte Percent A 0.3 % (0-0.5); Lymphocytes Absolute Auto 2.20 K/mm3 (0.9-3.2); Mean Corpuscular HGB Conc 31.7 g/dl (32-36); Mean Corpuscular Hemoglobin 29.1 pg (26-34); Mean Corpuscular Volume 91.8 fl (80-100); Nucleated Red Blood Cells Absolute Auto 0.000 K/mm3 (0.0-0.012); Nucleated Red Blood Cells Perc 0.0 % (0.0-0.2); Platelet Count Result 336 k/mm3 (150-375); Red Blood Count 4.98 M/mm3 (4.2-5.4); White Blood Count 11.1 K/mm3 (4.5-10.0)
[2025-08-15 16:10] LABS: Alanine Aminotransferase 18 U/L (6-35); Albumin Level 4.5 g/dL (3.5-5.1); Alkaline Phosphatase 86 U/L (38-126); Anion Gap 8 mmol/L (4-12); Aspartate Amino Transferase 31 U/L (14-36); Bilirubin,Total 0.5 mg/dL (0.2-1.3); Blood Urea Nitrogen 25 mg/dL (7-17); Calcium 9.8 mg/dL (8.4-10.2); Carbon Dioxide 29 mmol/L (22-30); Chloride 102 mmol/L (98-107); Estimated Glomerular Filt Rate 53; Glucose 107 mg/dL (65-110); HDL Direct 67 mg/dL; Potassium 4.4 mmol/L (3.4-5.0); Sodium 139 mmol/L (137-145); Total Protein 8.1 g/dL (6.3-8.2); Triglycerides 190 mg/dL (<150)
[2025-08-15 16:41] LABS: Hemoglobin A1C 5.9 % (<5.7)
[2025-08-15 16:49] LABS: Cholesterol 366 mg/dL (0-200)
[2025-08-15 17:04] LABS: Vitamin B12 828.0 pg/mL (239-931)
== END 2025-08-15 09:00 | disposition home or self-care (01) ==
LOC: ANHGOSHLAB 08:59
PROVIDERS: PCP Nurse Practitioner Family; Visit Provider Family Medicine
DX: E53.8 Deficiency of other specified B group vitamins (principal); I10 Essential (primary) hypertension; E78.5 Hyperlipidemia, unspecified; E55.9 Vitamin D deficiency, unspecified; R73.03 Prediabetes; E78.9 Disorder of lipoprotein metabolism, unspecified
CPT/HCPCS: 36415; 80053; 80061; 82306; 82607; 83036; 85025